=== PATIENT | female | born 1955 | race Caucasian/White ===

== ENCOUNTER 2018-05-04 10:38 | Emergency (ER) | payer MEDICAID ==
[~2018-05-04] VITALS: Ht 167.6 cm; Wt 75.0 kg
[2018-05-04 16:09] VITALS: BP 145/72
== END 2018-05-04 20:00 | disposition left against medical advice (07) ==
LOC: ER 10:58
DX: R11.2 Nausea with vomiting, unspecified (principal); Z53.21 Procedure and treatment not carried out due to patient leaving prior to being seen by health care provider